=== PATIENT | female | born 1980 | race Two or more races ===

== ENCOUNTER 2019-12-07 19:45 | Emergency (ER) | payer SELFPAY ==
[~2019-12-07] VITALS: Ht 162.6 cm; Wt 82.5 kg
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
[2019-12-07 20:23] LABS: BASOPHILS # (AUTO) 0.07 x10^3/uL (0-0.1); BASOPHILS % (AUTO) 1 % (0-1); EOSINOPHILS # (AUTO) 0.36 x10^3/uL (0-0.4); EOSINOPHILS % (AUTO) 4 % (1-7); LYMPHOCYTES # (AUTO) 2.59 x10^3/uL (1-3.4); LYMPHOCYTES % (AUTO) 27 % (22-44); MD NO; MEAN CORPUSCULAR HEMOGLOBIN 29.2 pg (27.0-34.8); MEAN CORPUSCULAR HGB CONC 33.4 g/dL (32.4-35.8); MEAN CORPUSCULAR VOLUME 87.6 fL (80-100); MEAN PLATELET VOLUME 7.7 fL (7.4-10.4); MONOCYTES # (AUTO) 0.22 x10^3/uL (0.2-0.8); MONOCYTES % (AUTO) 2 % (2-9); NEUTROPHILS # (AUTO) 6.38 x10^3/uL (1.8-6.8); NEUTROPHILS % (AUTO) 66 % (42-75); PLATELET COUNT 337 x10^3/uL (130-400); RED BLOOD COUNT 5.11 x10^6/uL (3.82-5.3); RED CELL DISTRIBUTION WIDTH 12.9 % (9.6-15.2)
[2019-12-07 20:36] LABS: ALBUMIN 3.2 g/dL (3.4-5.0); ANION GAP 8 mmol/L (5-15); CALCIUM 8.9 mg/dL (8.5-10.1); CHLORIDE 106 mmol/L (98-107); CREATININE 0.84 mg/dL (0.55-1.02)
[2019-12-07 20:38] LABS: AMPHETAMINE SCREEN, URINE Positive (Negative); BARBITURATE SCREEN, URINE Negative (Negative); BENZODIAZEPINE SCREEN, URINE Negative (Negative); CANNABINOID SCREEN, URINE Negative (Negative); COCAINE SCREEN, URINE Negative (Negative); METHADONE SCREEN, URINE Negative (Negative); OPIATE SCREEN, URINE Negative (Negative)
[2019-12-07 20:53] LABS: SALICYLATE LEVEL < 1.7 mg/dL (2.8-20.0)
--- NOTE | 2019-12-07 21:17 | NUR ---
PEGGY RN: TELEPSYCH PAGED
[2019-12-07] MEDS ORDERED: SODIUM CHLORIDE 0.9% 1,000ML IVBOLUS ONE (21:30)
[2019-12-07] MEDS ORDERED: INSULIN REGULAR 100 UNITS/ML, 3ML VIAL SQ-INSULIN ONE (21:30)
[2019-12-07] MEDS ORDERED: INSULIN SINGLE DOSE, ER ONE (21:36)
--- NOTE | 2019-12-07 22:18 | NUR ---
REPORT RECEIVED FROM HARRIS BERTRAND. ASSUMED CARE OF PT. AWAITING TELEPSYCH REPORT AT THIS TIME. BOYFRIEND AT BEDSIDE WITH PT. PT CALM AND COOPERATIVE. DENIES ANY NEEDS. FLUIDS INFUSING, WILL REASSESS BLOOD SUGAR SHORTLY
--- NOTE | 2019-12-07 22:25 | NUR ---
TP RN: PT REFUSED BY [facility] PT IS SELF PAY.
--- NOTE | 2019-12-07 22:52 | NUR ---
FSBS 256, FLUIDS COMPLETE. PT REQUESTS A PILLOW. DENIES ANY OTHER NEEDS AT THIS TIME. PT ON A HOLD, [facility] ONLY
--- NOTE | 2019-12-07 23:11 | NUR ---
TP RN: PACKET FAXED TO [facility] WITH CONFIRMATION
--- NOTE | 2019-12-08 00:02 | NUR ---
PT SLEEPING. RESPIRATIONS EVEN AND UNLABORED. SITTER OUTSIDE DOOR MONITORING PT. ROOM SECURE.
--- NOTE | 2019-12-08 01:15 | NUR ---
assumed care of pt. report from Heide IGLESIAS. pt here for SI. has hx of depression and prior SA, but has no specific plan today. pt is currently sleeping in position of comfort. room secured and sitter present for safety.
--- NOTE | 2019-12-08 02:05 | NUR ---
no changes. pt resting in position of comfort. lights dimmed. room secured. [id number] present for safety
--- NOTE | 2019-12-08 03:00 | NUR ---
no changes. pt resting with lights simmed. pt updated on POC regarding legal hold and attempting to get mental health placement. pt verbalized understanding. room secure. sitter present for safety
--- NOTE | 2019-12-08 04:00 | NUR ---
pt sleeping in position of comfort. lights dimmed. room secure. sitter present for safety
--- NOTE | 2019-12-08 05:08 | NUR ---
no changes. pt sleeping in position of comfort. no apparent distress. room secure. sitter present for safety
--- NOTE | 2019-12-08 06:10 | NUR ---
pt sleeping. easily arousable. resting in position of comfort in no apparent distress. room secure. sitter present for safety
--- NOTE | 2019-12-08 07:04 | NUR ---
report to Vinicius IGLESIAS
--- NOTE | 2019-12-08 07:06 | NUR ---
TOOK REPORT FROM KJ EVANS RN, ASSUME CARE AT THIS TIME. PT SLEEPING, RR OUMAR AND UNLABORD.
--- NOTE | 2019-12-08 09:44 | NUR ---
THROUGHPUT RN::SPOKE WITH [facility] JUDGE'S CLERK WHO REQUESTED TO REFAX PACKET FOR PT TO [phone]. THIS WAS DONE. [facility] STATED THERE ARE NO BEDS AVAILABLE AT THIS TIME AND CAN NOT ADMIT [facility] PTS TODAY, IF BED OPENS UP THEY WILL CALL US.
--- NOTE | 2019-12-08 10:44 | NUR ---
PT RESTING IN BED. ROOM IS SAFE AND SECURE, SITTER OUTSIDE ROOM.
--- NOTE | 2019-12-08 11:58 | NUR ---
TASK RN: PT TO GO HOME. GIVEN PT BELGONINGS BACK PER ELIGIBILITY ANALYST. PT RESTING IN [facility]. NAD.
[2019-12-08 13:03] VITALS: BP 124/65
== END 2019-12-08 13:04 | disposition home or self-care (01) ==
LOC: ED 21:22
DX: R45.851 Suicidal ideations (principal); E11.65 Type 2 diabetes mellitus with hyperglycemia; R00.0 Tachycardia, unspecified; F32.9 Major depressive disorder, single episode, unspecified; F15.10 Other stimulant abuse, uncomplicated
CPT/HCPCS: 36415; 80048; 80307; 82040; 82962; 84703; 85025; 96360; 99283; J1815; J7030

== ENCOUNTER 2020-08-08 14:14 | Inpatient (IN) | payer MEDICAID, OTHER ==
[~2020-08-08] VITALS: Ht 162.6 cm; Wt 69.4 kg
[2020-08-08] MEDS ORDERED: ONDANSETRON ODT 4 MG PO PRN (14:30)
[2020-08-08] MEDS ORDERED: DOCUSATE 100 MG CAPSULE PO PRN (14:30)
[2020-08-08] MEDS ORDERED: POLYETHYLENE GLYCOL 17 GM PACKET PO PRN (14:30)
[2020-08-08] MEDS ORDERED: ACETAMINOPHEN 325 MG TABLET PO PRN (14:30)
[2020-08-08] MEDS ORDERED: BISACODYL 10 MG SUPP PR PRN (14:30)
[2020-08-08 16:27] VITALS: BP 120/86
[2020-08-08] MEDS: INSULIN LISPRO 100 UNITS/ML, PEN SQ-INSULIN SCH (21:40)
[2020-08-09 05:42] LABS: BASOPHILS % (AUTO) 1 % (0-1); EOSINOPHILS % (AUTO) 5 % (1-7); LYMPHOCYTES % (AUTO) 34 % (22-44); MEAN CORPUSCULAR HEMOGLOBIN 29.3 pg (27.0-34.8); MEAN CORPUSCULAR HGB CONC 33.4 g/dL (32.4-35.8); MEAN PLATELET VOLUME 7.1 fL (7.4-10.4); MONOCYTES % (AUTO) 6 % (2-9); NEUTROPHILS % (AUTO) 54 % (42-75); PLATELET COUNT 331 x10^3/uL (130-400); RED BLOOD COUNT 4.98 x10^6/uL (3.82-5.3); RED CELL DISTRIBUTION WIDTH 13.5 % (9.6-15.2)
[2020-08-09 05:46] LABS: MD NO
[2020-08-09 05:51] LABS: CHLORIDE 106 mmol/L (98-107)
[2020-08-09 06:03] LABS: ALANINE AMINOTRANSFERASE 13 U/L (12-78); ALBUMIN 2.8 g/dL (3.4-5.0); ALKALINE PHOSPHATASE 103 U/L (45-117); ANION GAP 7 mmol/L (5-15); BILIRUBIN,TOTAL 0.4 mg/dL (0.2-1.0); CALCIUM 8.4 mg/dL (8.5-10.1); CHOL/HDL RATIO 3.9; CHOLESTEROL, TOTAL 146 mg/dL (140-239); CREATININE 0.45 mg/dL (0.55-1.02); FREE T4 (FREE THYROXINE) 1.06 ng/dL (0.76-1.46); HDL CHOL % 25 % (28-40); HDL CHOLESTEROL (DIRECT) 37 mg/dL (40-60); LDL CHOLESTEROL,CALCULATED 72 mg/dL (54-169); LDL/HDL RATIO 1.9 (0.5-3.0); TOTAL PROTEIN 6.4 g/dL (6.4-8.2); TRIGLYCERIDES 183 mg/dL (50-200); VLDL CHOLESTEROL 37 mg/dL (0-25)
[2020-08-09] MEDS: INSULIN LISPRO 100 UNITS/ML, PEN SQ-INSULIN SCH ×4 (07:43→20:24)
[2020-08-09] MEDS: NICOTINE 14MG/24 HR PATCH.TD24 TD SCH (08:43)
[2020-08-09 09:11] LABS: MICROSCOPIC INDICATED
[2020-08-09] MEDS: DULOXETINE 30 MG CAPSULE.DR PO SCH (17:04)
[2020-08-09] MEDS: INSULIN GLARGINE 100 UNITS/ML, PEN SQ-INSULIN SCH (20:26)
[2020-08-09 22:04] VITALS: BP 104/81
[2020-08-10 07:02] VITALS: BP 126/83
[2020-08-10] MEDS: NICOTINE 14MG/24 HR PATCH.TD24 TD SCH (07:58)
[2020-08-10] MEDS: INSULIN LISPRO 100 UNITS/ML, PEN SQ-INSULIN SCH ×4 (07:58→21:06)
[2020-08-10] MEDS ORDERED: SEMA0.25 IM (11:13)
[2020-08-10] MEDS ORDERED: INSU100C5 SQ-INSULIN (11:13)
[2020-08-10] MEDS ORDERED: INSU100I13 SC (11:13)
[2020-08-10] MEDS ORDERED: PREN1TAB60 PO (11:13)
[2020-08-10] MEDS ORDERED: HYDR-826 PO (11:13)
[2020-08-10] MEDS: DULOXETINE 30 MG CAPSULE.DR PO SCH (17:18)
[2020-08-10 19:42] VITALS: BP 111/75
[2020-08-10] MEDS: INSULIN GLARGINE 100 UNITS/ML, PEN SQ-INSULIN SCH (21:05)
[2020-08-11 07:17] VITALS: BP 113/73
[2020-08-11] MEDS: INSULIN LISPRO 100 UNITS/ML, PEN SQ-INSULIN SCH ×4 (09:24→20:38)
[2020-08-11] MEDS: NICOTINE 14MG/24 HR PATCH.TD24 TD SCH (09:25)
[2020-08-11] MEDS: DULOXETINE 30 MG CAPSULE.DR PO SCH (17:15)
[2020-08-11 19:31] VITALS: BP 110/72
[2020-08-11] MEDS: INSULIN GLARGINE 100 UNITS/ML, PEN SQ-INSULIN SCH (20:39)
[2020-08-12 07:04] VITALS: BP 110/78
[2020-08-12] MEDS ORDERED: DULO30CA2 PO (07:55)
[2020-08-12] MEDS ORDERED: NICO-486 TD (07:55)
[2020-08-12] MEDS: INSULIN LISPRO 100 UNITS/ML, PEN SQ-INSULIN SCH (08:30)
[2020-08-12] MEDS: NICOTINE 14MG/24 HR PATCH.TD24 TD SCH (08:33)
== END 2020-08-12 10:05 | disposition home or self-care (01) | DRG 751 ==
LOC: 3E 15:52
PROVIDERS: ADMIT Psychiatry & Neurology Psychosomatic Medicine; ATTEND Psychiatry & Neurology Psychosomatic Medicine
DX: F33.2 Major depressive disorder, recurrent severe without psychotic features (principal); R45.851 Suicidal ideations; E11.65 Type 2 diabetes mellitus with hyperglycemia; F11.20 Opioid dependence, uncomplicated; F15.20 Other stimulant dependence, uncomplicated; I10 Essential (primary) hypertension; K59.09 Other constipation; F17.210 Nicotine dependence, cigarettes, uncomplicated; Z79.4 Long term (current) use of insulin; Z83.3 Family history of diabetes mellitus
CPT/HCPCS: 36415; 71045; 80053; 80061; 81001; 82962; 84439; 84443; 84703; 85025; 93005; J1815